=== PATIENT | female | born 1955 | race Caucasian/White ===

== ENCOUNTER 2019-12-02 11:09 | Outpatient (REF) | payer OTHER, SELFPAY ==
--- NOTE | 2019-12-02 11:17 | MM_ITS ---
EXAMINATION: MM SCREENING DIGITAL BREAST TOMOSYNTHESIS, BILATERAL CLINICAL INFORMATION: Screening. Asymptomatic. The lifetime risk of breast cancer based on the Tyrer-Cuzick Model is 7%. COMPARISON: Mammography: 11/26/2018, 11/20/2017, 11/13/2016 TECHNIQUE: Digital breast tomosynthesis is performed in both the craniocaudal and mediolateral oblique views along with computer-aided detection (CAD). Synthesized 2D images are generated from the tomosynthesis. FINDINGS: There are scattered areas of fibroglandular density (ACR BI-RADS breast composition Category b). There are no significant masses, abnormal calcifications, or other abnormalities. No developing density. The axilla and skin contours are unremarkable. No significant changes. IMPRESSION: No mammographic evidence of malignancy. ASSESSMENT: BI-RADS 1: Negative RECOMMENDATION: Routine annual mammography screening. This patient's information was entered into a reminder system with a target due date for their next mammogram.
== END 2019-12-02 11:10 | disposition home or self-care (01) ==
LOC: HO.MAMMO 11:09
PROVIDERS: PCP Family Medicine; Visit Provider Obstetrics & Gynecology Gynecology
DX: Z12.31 Encounter for screening mammogram for malignant neoplasm of breast (principal)
CPT/HCPCS: 77063; 77067; 78014

== ENCOUNTER 2020-12-06 11:51 | Outpatient (REF) | payer OTHER, SELFPAY ==
--- NOTE | ~2020-12-06 | MM_ITS ---
EXAMINATION: MM SCREENING DIGITAL BREAST TOMOSYNTHESIS, BILATERAL CLINICAL INFORMATION: Screening. Asymptomatic. The lifetime risk of breast cancer based on the Tyrer-Cuzick Model is 6%. COMPARISON: Mammography: 10/20/2019, 11/26/2018; outside mammography 11/20/2017, 11/13/2016, 11/12/2015 ([facility]). TECHNIQUE: Digital breast tomosynthesis is performed in both the craniocaudal and mediolateral oblique views along with computer-aided detection (CAD). Synthesized 2D images are generated from the tomosynthesis. FINDINGS: There are scattered areas of fibroglandular density (ACR BI-RADS breast composition Category b). There are no significant masses, abnormal calcifications, or other abnormalities. The axilla and skin contours are unremarkable. A small circumscribed nodule under mid central outer left breast is progressively decreased in size since outside mammography 2015 and slightly decreased from prior exam 2019 suggesting resolving cyst. MM/MM tomosynthesis screening BI IMPRESSION: No mammographic evidence of malignancy. ASSESSMENT: BI-RADS 2: Benign RECOMMENDATION: Routine annual mammography screening. This patient's information was entered into a reminder system with a target due date for their next mammogram.
--- NOTE | ~2020-12-06 | MM_ITS ---
EXAMINATION: BONE DENSITOMETRY CLINICAL INDICATION: Encounter for screening for osteoporosis. COMPARISON: Baseline BD dated 11/26/2018. TECHNIQUE: Using a [employer] DXA System (software version: 13.1) manufactured by [employer], dual-energy x-ray absorptiometry was performed of the lumbar spine and left hip. The images are of good technical quality. Summary results are attached. FINDINGS: AP SPINE L1-L4: Current: BMD 0.976 g/cm2, Z-score -0.2, T-score -1.7, osteopenia, 3.0% increase from baseline (<5% change is not significant). Baseline: BMD 0.948 g/cm2. LEFT FEMUR, NECK: Current: BMD 0.678 g/cm2, Z-score -1.1, T-score -2.6, osteoporosis. Baseline: BMD 0.679 g/cm2. LEFT FEMUR, TOTAL: Current: BMD 0.706 g/cm2, Z-score -1.2, T-score -2.4, osteopenia, 3.2% decrease from baseline (<5% change is not significant). Baseline: BMD 0.729 g/cm2. IDENTIFIED RISK FACTORS: Menopause, family history (parental hip fracture). HISTORY OF FRACTURE: None listed. MEDICATIONS: Calcium supplements or multivitamin, vitamin D, bisphosphonates. MM/XR DEXA axial skeleton IMPRESSION: 1. DIAGNOSIS: Osteoporosis based on the lowest T-score value of -2.6 in the femoral neck applying World Health Organization criteria. 2. 10-YEAR FRACTURE RISK PREDICTION, FRAX: Major osteoporotic fracture (clinical spine, forearm, hip or shoulder) 24.6%. Hip fracture 4.4%. 3. Treatment Recommendations: NOF guidelines recommend consideration for treatment in postmenopausal women and men age 50 and older presenting with the following: -A hip or vertebral (clinical or morphometric) fracture. -T-score less than or equal to -2.5 at the femoral neck or spine after appropriate evaluation to exclude secondary causes. -Low bone mass at the hip or spine and a 10-year fracture probability by FRAX of greater than or equal to 3% for hip fracture or greater than or equal to 20% for major osteoporotic fracture based on the [place] adapted WHO algorithm. 4. Other Recommendations: All treatment decisions require clinical judgment and consideration of individual patient factors, including patient preferences, comorbidities, previous drug use, risk factors not captured in the FRAX model (e.g. frailty, falls, vitamin D deficiency, increased bone turnover, interval significant decline in bone density) and possible under or overestimation of fracture risk by FRAX. Additional medical evaluation for secondary cause of low bone mineral density may be appropriate. FUTURE SCAN RECOMMENDATION: People with diagnosed cases of osteoporosis or at high risk for fracture should have regular bone mineral density tests. For patients eligible for Medicare, routine testing is allowed once every 2 years. The testing frequency can be increased to one year for patients who have rapidly progressing disease, those who are receiving or discontinuing medical therapy to restore bone mass, or have additional risk factors.
== END 2020-12-06 11:52 | disposition home or self-care (01) ==
LOC: HO.MAMMO 11:51
PROVIDERS: Visit Provider Obstetrics & Gynecology Gynecology
DX: Z12.31 Encounter for screening mammogram for malignant neoplasm of breast (principal); M81.0 Age-related osteoporosis without current pathological fracture; Z78.0 Asymptomatic menopausal state
CPT/HCPCS: 77063; 77067; 77080

== ENCOUNTER 2021-12-11 11:02 | Outpatient (REF) | payer OTHER, SELFPAY ==
--- NOTE | ~2021-12-11 | MM_ITS ---
EXAMINATION: MM SCREENING DIGITAL BREAST TOMOSYNTHESIS, BILATERAL CLINICAL INFORMATION: Screening. Asymptomatic. The lifetime risk of breast cancer based on the Tyrer-Cuzick Model is 6%. COMPARISON: Mammography: 12/06/2020, 12/02/2019, 11/26/2018, 11/20/2017 TECHNIQUE: Digital breast tomosynthesis is performed in both the craniocaudal and mediolateral oblique views along with computer-aided detection (CAD). Synthesized 2D images are generated from the tomosynthesis. FINDINGS: There are scattered areas of fibroglandular density (ACR BI-RADS breast composition Category b). Breast tissue composition borders on heterogeneously dense. There are scattered minor stable asymmetries. No developing density or interval mass or architectural abnormality. No abnormal calcifications. Parenchymal pattern is similar to prior studies. The axilla and skin contours are unremarkable. MM/MM tomosynthesis screening BI IMPRESSION: No significant changes from prior studies. ASSESSMENT: BI-RADS 2: Benign RECOMMENDATION: Routine annual mammography screening. This patient's information was entered into a reminder system with a target due date for their next mammogram.
== END 2021-12-11 11:03 | disposition home or self-care (01) ==
LOC: HO.MAMMO 11:02
PROVIDERS: Absent Provider Obstetrics & Gynecology Gynecology; PCP Family Medicine; Visit Provider Family Medicine
DX: Z12.31 Encounter for screening mammogram for malignant neoplasm of breast (principal)
CPT/HCPCS: 77063; 77067

== ENCOUNTER 2022-12-17 10:15 | Outpatient (REF) | payer OTHER, SELFPAY ==
--- NOTE | ~2022-12-17 | MM_ITS ---
EXAMINATION: BONE DENSITOMETRY CLINICAL INDICATION: Age-related osteoporosis without current pathological fracture. COMPARISON: Previous BD dated 12/06/2020 and baseline BD dated 11/26/2018. TECHNIQUE: Using a [employer] DXA System (software version: 13.1) manufactured by [employer], dual-energy x-ray absorptiometry was performed of the lumbar spine and left hip. The images are of good technical quality. Summary results are attached. FINDINGS: AP SPINE L1-L4: Current: BMD 0.935 g/cm2, Z-score -0.6, T-score -2.0, osteopenia, 4.2% decrease from previous, 1.4% decrease from baseline (<5% change is not significant). Prior: BMD 0.976 g/cm2. Baseline: BMD 0.948 g/cm2. LEFT FEMUR, NECK: Current: BMD 0.717 g/cm2, Z-score -0.8, T-score -2.3, osteopenia. Prior: BMD 0.678 g/cm2. Baseline: BMD 0.679 g/cm2. LEFT FEMUR, TOTAL: Current: BMD 0.732 g/cm2, Z-score -0.9, T-score -2.2, osteopenia, 3.7% increase from previous, 0.4% increase from baseline (<5% change is not significant). Prior: BMD 0.706 g/cm2. Baseline: BMD 0.729 g/cm2. IDENTIFIED RISK FACTORS: Osteoporosis. Parental hip fracture. Secondary osteoporosis (hyperthyroidism). Menopause. HISTORY OF FRACTURE: None listed. MEDICATIONS: Calcium supplement and/or multivitamin. Vitamin D. Bisphosphonates. MM/XR DEXA axial skeleton IMPRESSION: 1. DIAGNOSIS: Osteopenia based on the lowest T-score value of -2.3 in the femoral neck applying World Health Organization criteria. 2. 10-YEAR FRACTURE RISK PREDICTION, FRAX: Not performed in this patient on estrogen or bone building treatments. 3. Treatment Recommendations: NOF guidelines recommend consideration for treatment in postmenopausal women and men age 50 and older presenting with the following: -A hip or vertebral (clinical or morphometric) fracture. -T-score less than or equal to -2.5 at the femoral neck or spine after appropriate evaluation to exclude secondary causes. -Low bone mass at the hip or spine and a 10-year fracture probability by FRAX of greater than or equal to 3% for hip fracture or greater than or equal to 20% for major osteoporotic fracture based on the [place] adapted WHO algorithm. 4. Other Recommendations: All treatment decisions require clinical judgment and consideration of individual patient factors, including patient preferences, comorbidities, previous drug use, risk factors not captured in the FRAX model (e.g. frailty, falls, vitamin D deficiency, increased bone turnover, interval significant decline in bone density) and possible under or overestimation of fracture risk by FRAX. Additional medical evaluation for secondary cause of low bone mineral density may be appropriate. FUTURE SCAN RECOMMENDATION: People with diagnosed cases of osteoporosis or at high risk for fracture should have regular bone mineral density tests. For patients eligible for Medicare, routine testing is allowed once every 2 years. The testing frequency can be increased to one year for patients who have rapidly progressing disease, those who are receiving or discontinuing medical therapy to restore bone mass, or have additional risk factors.
== END 2022-12-17 10:16 | disposition home or self-care (01) ==
LOC: HO.MAMMO 10:15
PROVIDERS: PCP Nurse Practitioner Primary Care; Referring Provider Internal Medicine Cardiovascular Disease; Visit Provider Obstetrics & Gynecology Gynecology
DX: Z12.31 Encounter for screening mammogram for malignant neoplasm of breast (principal); Z13.820 Encounter for screening for osteoporosis; Z78.0 Asymptomatic menopausal state; M81.0 Age-related osteoporosis without current pathological fracture
CPT/HCPCS: 77063; 77067; 77080

== ENCOUNTER → 2022-12-17 10:30 | Outpatient (BNV) | payer OTHER, SELFPAY | PROVIDERS: PCP Nurse Practitioner Primary Care; Referring Provider Internal Medicine Cardiovascular Disease; Visit Provider Radiology Diagnostic Radiology | DX: Z12.31 Encounter for screening mammogram for malignant neoplasm of breast (principal) | CPT/HCPCS: 77063; 77067 ==

== ENCOUNTER 2023-12-22 13:49 | Outpatient (REF) | payer OTHER, SELFPAY ==
--- NOTE | ~2023-12-22 | MM_ITS ---
EXAMINATION: MM SCREENING DIGITAL BREAST TOMOSYNTHESIS, BILATERAL CLINICAL INFORMATION: Screening. Asymptomatic. COMPARISON: Mammography: Comparison is made with available priors TECHNIQUE: Digital breast mammography with tomosynthesis is performed in both the craniocaudal and mediolateral oblique views along with computer-aided detection (CAD). FINDINGS: The breasts are heterogeneously dense, which may obscure small masses (ACR BI-RADS breast composition Category c). There are no significant masses, abnormal calcifications, or other abnormalities. MM/MM tomosynthesis screening BI IMPRESSION: No mammographic evidence of malignancy. ASSESSMENT: BI-RADS BI-RADS 1 - Negative RECOMMENDATION: Routine annual mammography screening. 1 year F/U This examination should not preclude the clinical evaluation of a suspicious palpable abnormality. This patient's information was entered into a reminder system with a target due date for their next mammogram. Electronically signed by: Zohreh Houser DO 01/04/2024 03:46 PM [facility]ME
== END 2023-12-22 13:50 | disposition home or self-care (01) ==
LOC: HO.MAMMO 13:49
PROVIDERS: PCP Family Medicine; Visit Provider Obstetrics & Gynecology Gynecology
DX: Z12.31 Encounter for screening mammogram for malignant neoplasm of breast (principal)
CPT/HCPCS: 77063; 77067

== ENCOUNTER → 2023-12-22 14:00 | Outpatient (BNV) | payer OTHER, SELFPAY | PROVIDERS: PCP Family Medicine; Visit Provider Internal Medicine | DX: Z12.31 Encounter for screening mammogram for malignant neoplasm of breast (principal) | CPT/HCPCS: 77063; 77067 ==

== ENCOUNTER 2024-12-22 13:50 | Outpatient (REF) | payer OTHER, SELFPAY ==
--- OUTSIDE RECORDS SUMMARY | 2023-11-23 06:40 | XMS_ITS ---
Author Organization [facility] Address [address] [place] [address] Care Team Providers Care Electric Truck Operator Name Role Phone LEON HENDRICKSON Primary Care Provider Mildred Alexandra Unavailable [phone] REASON FOR VISIT Annual FINISHER SCREWDOWN Physical Encounters Encounter Location Date Provider Diagnosis [facility] [address] [place] [address] 11/23/2023 Mildred Whelan Plan Of Treatment Next Appt Details Provider Name:Mildred meza, 12/18/2025 02:40:00 PM, [address] [place] [address], [address], [place], [address], Progress Notes * PENNY MCCLAINB:1955 (69 yo F)Acc No.[id number]:11/23/2023 PROGRESS NOTES Patient: RINKU MCKEON Appointment Provider: Jamey Whelan M.D. :1955 A ge:68 Y S ex:Female Date:11/23/2023 Address:[address] [place], [place] [id number] Pcp:LEON HENDRICKSON Subjective: * Chief Complaints: * 1 . Annual FINISHER SCREWDOWN Physical. * Medical History: Objective: * Vitals: Assessment: Plan: * Treatment: * Images: Billing Information: * Visit Code: * Procedure Codes: * Electronic signature of Maday Whelan MD on 12/22/2024 at 05:44 PM EDT Sign off status: Pending * Appointment Provider: Jamey Whelan M.D. Date: 0 11/23/2023 Generated for Mirela ellison/Juliette/Tee on: 1 05:44 PM EDT
--- NOTE | ~2024-12-22 | MM_ITS ---
EXAMINATION: MM SCREENING DIGITAL BREAST TOMOSYNTHESIS, BILATERAL CLINICAL INFORMATION: Screening. Asymptomatic. COMPARISON: Mammography: Comparison is made with available priors TECHNIQUE: Digital breast mammography with tomosynthesis is performed in both the craniocaudal and mediolateral oblique views along with computer-aided detection (CAD). FINDINGS: The breasts are heterogeneously dense, which may obscure small masses. There are no significant masses, abnormal calcifications, or other abnormalities. MM/MM tomosynthesis screening BI IMPRESSION: No mammographic evidence of malignancy. ASSESSMENT: BI-RADS Category 1: Negative RECOMMENDATION: Routine annual mammography screening. 1 year F/U This examination should not preclude the clinical evaluation of a suspicious palpable abnormality. This patient's information was entered into a reminder system with a target due date for their next mammogram. Electronically signed by: Zohreh Houser DO 12/26/2024 09:46 AM EDT
--- NOTE | ~2024-12-22 | MM_ITS ---
EXAMINATION: DXA BONE DENSITY AXIAL HISTORY: M81.0 AGE RELATED OSTEOPOROSIS TECHNIQUE: [employer] Dual energy absorptiometry (DEXA) of the lumbar spine, total left hip, and femoral neck was performed. COMPARISON: Comparison is made with the prior examination dated 12/17/2022. FINDINGS: The bone mineral density of the lumbar spine is 1.068 g/cm2, corresponding to a T-score of -0.9, and a Z-score of 0.6. This is indicative of normal bone mineral density. This represents a BMD change of 14.2% compared to the prior exam. This is statistically significant. The bone mineral density of the left total hip is 0.724 g/cm2, corresponding to a T-score of -2.3, and a Z-score of -0.8. This is indicative of osteopenia. This represents a BMD change of -1.1% compared to the prior exam. This is not statistically significant. The bone mineral density of the left femoral neck is 0.718 g/cm2, corresponding to a T-score of -2.3, and a Z-score of -0.7. This is indicative of osteopenia. This represents a BMD change of 0.1% compared to the prior exam. MM/XR DEXA axial skeleton IMPRESSION: Based on bone mineral density, and according to World Health Organization (WHO) criteria, the diagnosis is consistent with osteopenia. Statistically, 68% of repeat scans fall within 1 SD (+/- 0.010 g/cm2 for AP spine L1-L4) and 1 SD (+/- 0.012 g/cm2 for femur total) [employer] is a trademark of the [employer] [place] [employer] Met[employer], a World Health Organization (WHO) Collaborating Center. Electronically signed by: Chidi Titus MD 12/22/2024 03:19 PM EDT
--- OUTSIDE RECORDS SUMMARY | 2024-12-22 17:45 | XMS_ITS | Encounter Summary ---
Author Organization [facility] Address [address] [place] [address] Care Team Providers Care Clinical Cytogeneticist Name Role Phone Chidi Vásquez Primary Care Provider [phone] Encounter Details Date Type Department Care Team (Late st Contact Info) Description 07/20/2024 Orders Only [facility] Nuclear Medicine [address] [place] [id number] Chidi Hawk MD [address] [place] [address] Social History Tobacco Use Types Packs/Day Years Used Date Smoking Tobacco: Never Smokeless Tobacco: Never Alcohol Use Standard Drinks/Week Comments Yes 0 (1 standard drink = 0.6 oz pur e alcohol) Comments Unknown Sex and Gender Information Value Date Recorded Sex Assigned at Female 11/30/2023 10:18 AM EDT Legal Sex Female 12:18 PM EDT Gender Identity Female 11/30/2023 10:18 AM EDT Sexual Orientation Straight 11/30/2023 10 :18 AM EDT documented as of this encounter Plan of Treatment Upcoming Encounters Date Type Department Care Team (Late st Contact Info) Description 02/15/2025 10:45 AM EST Follow-Up [facility] Neurology [address] [place] [address] [address] [place] [address] Benson Madrid MD [address] [place] [phone] documented as of this encounter Visit Diagnoses Not on filedocumented in this encounter Care Teams Clinical Cytogeneticist Relationship Specialty Start Date End Date Chidi Vásquez [address] [place] [phone] PCP - General Family Medicine 11/27/23 documented as of this encounter
--- OUTSIDE RECORDS SUMMARY | 2024-12-22 17:45 | XMS_ITS | Clinical Summary ---
Author Organization [facility] Address [address] [facility] [address] [place] [phone] Phone Care Team Providers Care Utility Tech Name Role Phone Annetta Carter MD Primary Care Provider Allergies No known active allergies Medications calcium citrate-vitamin D3 1,000 mg-400 unit/30 mL Liqd Take by mouth. Active cholecalciferol (VITAMIN D3) 25 MCG (1,000 unit) tablet Take 1,000 Units by mouth daily. Active celecoxib (CELEBREX) 200 MG capsule Take 200 mg by mouth daily. Active alendronate (FOSAMAX) 70 MG tablet TAKE 1 TABLET BY MOUTH IN THE MORNING EVERY 7 DAYS WITH A FULL GLASS OF WATER ON AN EMPTY STOMACH. DO NOT TAKE ANYTHING ELSE BY MOUTH OR LIE DOWN FOR THE NEXT 30 MINUTES 12 tablet 3 11/28/2020 Active levothyroxine (SYNTHROID, LEVOTHROID) 100 MCG tablet Take 1 tablet (100 mcg total) by mouth as directed. Take 1 tab daily for 6 days of the week, take 1/2 a tab on 1 day of the week only. 90 tablet 3 05/12/2022 Active Active Problems Problem Noted Date Diagnosed Date Postablative hypothyroidism 11/18/2017 Thyroid nodule 11/18/2017 Family History Medical History Relation Comments Thyroid disease Neg Hx Social History Tobacco Use Types Packs/Day Years Used Date Smoking Tobacco: Former Cigarettes Q uit: 11/19/1979 Smokeless Tobacco: Never Alcohol Use Standard Drinks/Week Comments Yes 0 (1 standard drink = 0.6 oz pur e alcohol) Education Answer Date Recorded Are you interested in more education? Not on arvind e 06/27/2022 Are you concerned about learning? Not on file 06/27/2022 No 06/27/2022 No 06/27/2022 Digital Access Answer Date Recorded No 07/26/2022 No 07/26/2022 No 07/26/2022 Reliable internet access at home? Not on file 07/26/2022 Device with a working camera? Not on file Comments Unknown Sex and Gender Information Value Date Recorded Sex Assigned at Not on file Legal Sex Female 3:45 PM EDT Gender Identity Not on file Sexual Orientation Not on file Last Filed Vital Signs Vital Sign Reading Time Taken Comments Blood Pressure 115/70 11/18/2017 3:23 PM EDT Pulse 80 11/18/2017 3:23 PM EDT Temperature - - Respiratory Rate - - Oxygen Saturation - - Inhaled Oxygen Concentration - - Weight 69.4 kg (153 lb) 11/18/2017 3:23 PM EDT Height 165.1 cm (5' 5 ) 11/18/2017 3:23 PM EDT Body Mass Index 25.46 11/18/2017 3:23 PM EDT Plan of Treatment Health Maintenance Due Date Last Done Comments Adult Td,Tdap Booster 1955 LIPID PANEL 1955 DEPRESSION SCREENING 1966 SMOKING Hx and SMOKELESS TOBACCO SCREENING 05/04/1967 HEPATITIS C SCREENING 1972 MAMMOGRAM 1994 COLOGUARD 05/04/1999 COLONOSCOPY 05/04/1999 COLORECTAL CANCER SCREENING 05/04/1999 FIT TEST 05/04/1999 FOBT 05/04/1999 SIGMOIDOSCOPY 05/04/1999 VIRTUAL COLONOSCOPY 05/04/1999 PNEUMOCOCCAL VACCINES (50+ years) (1 of 1 - PCV) 2004 OSTEOPOROSIS SCREENING INITI AL (ONE-TIME) 05/04/2019 TSH LEVEL 11/28/2021 11/28/2020, 11/29/2019, 11/09/2018 INFLUENZA VACCINE (#1) 2024 9, 11/10/2017, 11/06/2016 COVID-19 VACCINE (2 - 2024-2 6 season) 2024 04/26/2020 RSV VACCINE (1 - 1-dose 75+ series) 2029 ZOSTER VACCINES Completed 09/17/2018, 07/15/2018 HEPATITIS A VACCINES Aged Out No long er eligible based on patient's age to complete this topic HIB VACCINES Aged Out No longer eligi ble based on patient's age to complete this topic MENINGOCOCCAL VACCINES (ACWY) Aged Out No longer eligible based on patient's age to complete this topic MENINGOCOCCAL VACCINES (B) Aged Out N o longer eligible based on patient's age to complete this topic Medical Devices Not on file Procedures Procedure Name Priority Date/Time Associated Diagnosis Comments TSH Routine 11/28/2020 2:21 PM EDT Postablative hypothyroidism from Last 3 Months or Most Recently Relevant to Health Maintenance Results * TSH (11/28/2020 2:21 PM EDT) TSH 1.05 0.40 - 5.00 uIU/mL [facility] 11/28/2020 2:21 PM EDT 11/28/2020 7:03 PM EDT Hellen Dias MD LAB BLOOD ORDERABLES Final Result [address] [id number] from Last 3 Months or Most Recently Relevant to Health Maintenance Insurance [facility] TOTAL CHOICE INDEMNITY [facility] T[facility]ICE INDEMNITY [facility] TOTAL CHOICE INDEMNITY [facility] TOTAL CHOICE [facility]DEMN[facility] TOTAL CHOICE [facility]MNITY [facility]OTAL CHOICE [facility]MNITY [facility] TOTAL CHOICE INDEMNITY [facility] TOTAL CHOICE INDEMNITY [facility] TOTAL CHOICE INDEMNITY Care Teams Utility Tech Relationship Specialty Start Date End Date Annetta Carter MD [address] [place] [id number] PCP - General Family Medicine 09/16/17 Additional Source Comments The information contained in this document represents components of the legal health record. It is not the complete legal health record.[facility]
--- OUTSIDE RECORDS SUMMARY | 2024-12-22 17:45 | XMS_ITS | Clinical Summary ---
Author Organization [facility] Address [address] [place] [address] Care Team Providers Care Supervisor Histology Name Role Phone Chidi Vásquez Primary Care Provider [phone] Allergies No known active allergies Medications levothyroxine (SYNTHROID, LEVOTHROID) 112 mcg tablet Take 112 mcg by mouth daily. Active Fosamax 70 mg tablet 4 Active ascorbic acid, vitamin C, (Vitamin C) 500 mg tablet,chewable 4 Active CALCIUM CITRATE-VITAMIN D3 ORAL Take by mouth. Activ e calcium citrate/vitamin D3 (CITRACAL + D ORAL) 4 Active cholecalciferol (VITAMIN D3) 2,000 unit tablet Vitamin D TABS 1000unit DIRECTED, Quantity: 0; Refills: 0 Started [id number] Active 9 Active cholecalciferol (VITAMIN D3) 1,000 unit tablet Take 1,000 Units by mouth daily. Active docusate sodium (COLACE) 100 mg capsule every 24 hours. 4 Active doxepin 10 mg capsule 1 CAPSULE BY MOUTH DAILY AT BEDTIME,INSTR:FO R SLEEP IF NO IMPROVEMENT CAN TAKE 2 AT A TIME Oral for 15 Days Active doxycycline hyclate 20 mg tablet 4 Active metroNIDAZOLE (METROGEL) 1 % gel SMARTSIG:Topical Daily 4 Active omega-3s/dha/ep a/fish oil/D3 (VITAMIN-D + OMEGA-3 ORAL) 4 Active triamcinolone acetonide (KENALOG) 0.1% cream SMARTSIG:Sparing ly Topical Twice Daily 02/20/202 4 Active wheat dextrin (Fiber Supplement,whea tdextrin,) 3 gram/3.8 gram powder Active Active Problems Problem Noted Date Diagnosed Date REM sleep behavior disorder 10/04/2024 Parkinson's disease without dyskinesia or fluctuating manifestations 12/02/2023 Encounters Date Type Department Care Team Description 11/25/2024 Telephone [facility] Neurology [address] [place] [address] [address] [place] [address] Yisel Mcgrath MD 10/04/2024 11:15 AM EDT Follow-Up [address] [place] [address] Benson Madrid MD Parkinson's disease without dyskinesia or fluctuating manifestations (HCC) (Primary Dx); REM sleep behavior disorder from Last 3 Months Family History Medical History Relation Name Comments Tremor Mother Relation Name Status Comments Mother Social History Tobacco Use Types Packs/Day Years Used Date Smoking Tobacco: Never Smokeless Tobacco: Never Tobacco Cessation:Counseling Given: Not Answered Alcohol Use Standard Drinks/Week Comments Yes 0 (1 standard drink = 0.6 oz pur e alcohol) Comments Unknown Sex and Gender Information Value Date Recorded Sex Assigned at Female 11/30/2023 10:18 AM EDT Legal Sex Female 12:18 PM EDT Gender Identity Female 11/30/2023 10:18 AM EDT Sexual Orientation Straight 11/30/2023 10 :18 AM EDT Last Filed Vital Signs Vital Sign Reading Time Taken Comments Blood Pressure 150/78 10/04/2024 11:05 AM EDT Pulse 83 10/04/2024 11:05 AM EDT Temperature 36.4 C (97.5 F) 10/04/2024 11:05 AM EDT Respiratory Rate - - Oxygen Saturation 100% 10/04/2024 11:05 AM EDT Inhaled Oxygen Concentration - - Weight 69.9 kg (154 lb) 10/04/2024 11:05 AM EDT Height - - Body Mass Index - - Plan of Treatment Upcoming Encounters Date Type Department Care Team (Late st Contact Info) Description 02/15/2025 10:45 AM EST Follow-Up [facility] Neurology [address] [place] [address] [address] Medical [place] [address] Benson Madrid MD [address] [place] [phone] Health Maintenance Due Date Last Done Comments Colonoscopy 1955 FOBT / Fit Test 1955 Hepatitis C Screening 1955 Sigmoidoscopy 1955 Mammogram 1994 Osteoporosis Screening 2004 Alcohol/Substance Use Screening 03/02/2024 Depression Screening and Follow-Up 03/02/2024 Health Care Proxy Review 03/02/2024 Social Drivers of Health Annual Screening 03/02/2024 COVID-19 Vaccine ( - 2024- season) 2024 05/24/2020, 04/26/2020 Influenza Vaccine (#1) 2024 7, 11/04/2015, 10/22/2014, Additional history exists Cologuard 09/15/2027 09/14/2024, 09/14/2024 Colon Cancer Screening 09/15/2027 RSV Vaccine (60+ years old and patients) (1 - 1-dose 75+ series) 2029 DTaP,Tdap,and Td Vaccines (3 - Td or Tdap) 08/13/2032 08/13/2022, 11/19/2011 Zoster Vaccines Completed 09/17/2018, 07/15/2018 Pneumococcal Vaccine: 50+ Years Completed 08/13/2022, 08/03/2020, 08/03/2019 Hepatitis B Vaccines Aged Out No long er eligible based on patient's age to complete this topic Insurance [employer] Care Teams Supervisor Histology Relationship Specialty Start Date End Date Chidi Vásquez [address] [place], [place] [address] quinones [phone] PCP - General Family Medicine 11/27/23
--- OUTSIDE RECORDS SUMMARY | 2024-12-22 17:45 | XMS_ITS | Patient Health Record ---
Author Organization [facility] Address [address] [place] [address] Care Team Providers Care Board Design Engineer Name Role Phone LEON HENDRICKSON Primary Care Provider Mildred Alexandra [phone] Allergies No Known Allergies Results Component Value Reference Range Notes Urinalysis Reviewed date:12/14/2024 03:25:57 PM Interpretation: Performing Lab: Notes/Report: PH 5.0 PROTEIN Neg GLUCOSE Neg BLOOD Neg PDF Report Reviewed date:02/07/2024 02:25:21 PM Interpretation: Performing Lab:[facility], [address] [place] [address], Phone - [phone], [facility] - [facility] Notes/Report: Clinical Information:Vaginal/Cervical, LMP: Men o [id number] Dates / Results....11/23/23 No Interp Poss Other..............Post Menopausal No. of containers..01 ThinPrep Vial [id number] [id number] No Culture 30 Plus Reviewed date:02/07/2024 02:27:15 PM Interpretation: Performing Lab:[facility], [address] [place] [address], Phone - [phone], Director - [facility] Notes/Report: Clinical Information:Vaginal/Cervical, LMP: Men o [id number] Dates / Results....11/23/23 No Interp Poss Other..............Post Menopausal No. of containers..01 ThinPrep Vial DIAGNOSIS: EPITHELIAL CELL ABNORMALITY. ATYPICAL SQUAMOUS CELLS OF UNDETERMINED SIGNIFICANCE (ASC-US). Specimen adequacy: Satisfactory for evaluation. Endocervical and/or squamous metaplastic cells (endocervical component) are present. Clinician provided ICD10: R8 7.615 Additional comment: INCREASE D SQUAMOUS MATURATION FOR PATIENT AGE Performed by: Vignesh Prakash , Foundation Maker (ASCP) Electronically signed by: Lynnette Cook MD, Pathologist . . Pathologist provided ICD10: R87.610 Note: The Pap smear is a screening test designed to aid in the detection of premalignant and malignant conditions of the uterine cervix. It is not a diagnostic procedure and should not be used as the sole means of detecting cervical cancer. Both false-positive and false-negative reports do occur. . Test Methodology: This liquid based ThinPrep(R) pap test was screened with the use of an image guided system. HPV Aptima Negative Negative This nucleic acid amplification test detects fourteen high-risk HPV types (16,18,31,33,35,39,45,51,52,56, 58,59,66,68) without differentiation. HPV Genotype Reflex Criteria not met, HPV Genotype not performed. Reason For Referral No Information Medications Medication SIG (Take, Route, Frequency, Duration) Notes Start Date End Date Status Doxepin HCl 10 MG 1 CAPSULE BY MOUTH D AILY AT BEDTIME,INSTR:FOR SLEEP IF NO IMPROVEMENT CAN TAKE 2 AT A TIME Oral; Duration: 15 Days Active Levoxyl 100 MCG 1 tablet Orally Once a day, 1 1/2 on Thursday, None of Thursday [facility] 02/13/2011 Active Stool Softener 100 MG 1 capsule as neede d Orally Once a day; Duration: 30 day(s) Active Caltrate 600 Active Doxycycline Hyclate 20 MG Oral; Duration: 90 Days Active Alendronate Sodium 35 MG 1 tablet 30 min utes before the first food, beverage or medicine of the day with plain water Orally Once a day; Duration: 90 days 11/23/2023 Active Immunizations Vaccine Route Administration Date Status Comme nts Influenza, live, intranasal Intramuscular 09/15/2011 Jorge ellison Social History Tobacco Use: Social History Observation Description Date Details (start date - stop date) Never Smoker NA - NA Sexual History Question Answer Notes Had sex in the past 12 months (vaginal, oral, or anal)? Yes with Men only Prevention strategies discussed: Other AUDIT-C (Standard) Question Answer Notes Did you have a drink contain ing alcohol in the past year? Yes How often did you have a dri nk containing alcohol in the past year? 2 to 4 times a month (2 points) How many drinks did you have on a typical day when you were drinking in the past year? 1 or 2 drinks (0 point) How often did you have six o r more drinks on one occasion in the past year? Never (0 point) Points 2 Interpretation Negative Tobacco Control (Standard) Question Answer Notes Tobacco use: Nonsmoker Section Notes: Marital status: Children: none Occupation: retired Nutrition: good diet .CE: Smoking: none .CE: Alcohol: socially drinks alcohol Illicit drugs: no Seatbelt: yes Problems Problem Type SNOMED Code ICD Code Onset Dates Problem Status W/U Status Risk Notes Problem Vitamin D deficiency (02191059) Vitamin D deficiency, unspecified (E55.9) Active confirmed Problem Postmenopausal atrophic vaginitis (12454558) Postmenopausal atrophic vaginitis (N95.2) Active confirmed Problem Age-related osteoporosis (505400532) Age-related osteoporosis without current pathological fracture (M81.0) Active confirmed Problem Parkinson's disease (disorder) (25744388) Parkinson's disease without dyskinesia, without mention of fluctuations (G20.A1) Active confirmed Problem Hypothyroidism (41323319) Unspecified hypothyroidism (244.9) Active confirmed Major Problem Menopausal symptom (11435254) Symptomatic menopausal or female climacteric states (627.2) Active confirmed Major Problem Postmenopausal atrophic vaginitis (93736646) Postmenopausal atrophic vaginitis (627.3) Active confirmed Diag Problem General examination of patient (453055213) Routine general medical examination at health care facility (V70.0) Active confirmed Diag Problem Gynecological examination normal (467524054760223) Routine gynecological examination (V72.31) Active confirmed Major Problem Exercises teaching, guidance, and counseling (212953842) Exercise counseling (V65.41) Active confirmed Diag Problem Screening for malignant neoplasm of colon (166566459) Special screening for malignant neoplasms, colon (V76.51) Active confirmed Major Vital Signs Temperature 97.4 degrees Fahrenheit 12/14/2024 Blood pressure diastolic 78 mm Hg 12/14/2024 Height 65.5 in 12/14/2024 Blood pressure systolic 106 mm Hg 12/14/2024 Weight 151 lbs 12/14/2024 BMI 24.74 kg/m2 12/14/2024 Encounters Encounter Location Date Provider Diagnosis [facility] [address] [place] [address] 01/11/2024 Mildred Whelan [facility] [address] [place] [address] 02/08/2024 Mildred Whelan [facility] [address] [place] [address] 01/25/2024 Mildred Whelan Unsatisfactory cytologic smear of cervix R87.615 [facility] [address] [address] 12/14/2024 Mildred Whelan Encounter for gynecological examination (general) (routine) without abnormal findings Z01.419 ; Encounter for screening mammogram for malignant neoplasm of breast Z12.31 ; Age-related osteoporosis without current pathological fracture M81.0 and Dense breasts, unspecified R92.30 Assessments Encounter Date Diagnosis (ICD Code) Assessment Notes Treatment Notes Treatment Clinical Notes Section Notes 01/25/2024 Unsatisfactory cytologic smear of cervix (ICD-10 - R87.615) PAP TEST WITH HPV TYPING WAS TAKEN. PREMAIRN CREAM REMNANTS WERE NOTED AND AM HOPING THIS PAP IS NOT UNINTERPRETABLE AGAIN DUE TO THE CREAM. DISCUSSED THIS WITH PAT. IF IT IS UNINTERPRETABLE, WILL JUST REPEAT PAP NEXT YEAR. 12/14/2024 Encounter for gynecological examination (general) (routine) without abnormal findings (ICD-10 - Z01.419) NO MORE PAP TESTS. 12/14/2024 Encounter for screening mammogram for malignant neoplasm of breast (ICD-10 - Z12.31) REGULAR MAMMOGRAMS AND SBE'S WERE RECOMMENDED. 12/14/2024 Age-related osteoporosis without current pathological fracture (ICD-10 - M81.0) DISCUSSED OSTEOPOROSIS AND ITS IMPACT ON HER HEALTH. ADEQUATE CALCIUM AND VIT D. WEIGHT BEARING EXERCISES. OSTEO PRECAUTIONS. REPEAT BMD THIS YEAR. CONTINUE FOSAMAX. HER PARKINSON'S MD WILL BE PRESCRIBING THE MEDICATION. 12/14/2024 Dense breasts, unspecified (ICD-10 - R92.30) DISCUSSED DENSE BREASTS ON MAMMOGRAM AND ITS IMPLICATIONS. 3D MAMMOGRAMS WERE RECOMMENDED. Plan Of Treatment Pending Test Test Name Order Date MAMMOGRAM, SCREENING 03/01/2015 MAMMOGRAM, SCREENING 11/17/2022 MAMMOGRAM, SCREENING 11/23/2023 MAMMOGRAM, SCREENING 12/14/2024 MAMMOGRAM, SCREENING 10/31/2020 MAMMOGRAM, SCREENING 09/09/2019 Urinalysis 11/23/2023 BONE DENSITY 11/17/2022 BONE DENSITY 12/14/2024 BONE DENSITY 10/31/2020 BONE DENSITY 09/17/2022 MM Digital Mammo Screening 10/31/2020 MM Digital Mammo Screening 09/09/2019 MM Digital Mammo Screening 12/14/2024 MM Digital Mammo Screening 11/23/2023 MM Digital Mammo Screening 11/11/2021 MM Digital Mammo Screening 11/17/2022 Next Appt Details Provider Name:Mildred meza, 12/18/2025 02:40:00 PM, [address], [place], [address], Insurance Providers Payer Name Payer Address Payer Phone Subscriber Number Group Number Insured Name Patient Relationship to Insured Coverage Start Date Coverage End Date [facility] [address] [place] [id number] [facility] RINKU MCCLAIN Self - patient is the insured Medical (General) History Medical History History ICD Code Postmenopausal atrophic vaginitis N95.2 Other specified counseling Z71.89 Hypothyroidism, unspecified E03.9 Menopausal and female climacteric states N95.1 Inconclusive mammogram R92.2 Disorder of bone density and structure, unspecified M85.9 Shingles 12/2017 Thyroid Growth Vitamin D deficiency, unspecified E55.9 Age-related osteoporosis without current pathological fracture M81.0 Mammographic heterogeneous density, bila teral breasts R92.333 Parkinson's disease without dyskinesia, without mention of fluctuations G20.A1 Dense breasts, unspecified R92.30 Atypical squamous cells of u ndetermined significance on cytologic smear of cervix (ASC-US) R87.610 Surgical History Surgery Date(Month/Year) Radioactive Iodine Treatment - Graves Di sease Colonoscopy Cataracts Right Eye Hospitalization History Reason Date(Month/Year) See Surgical Hx
== END 2024-12-22 13:51 | disposition home or self-care (01) ==
LOC: HO.MAMMO 13:50
PROVIDERS: Absent Provider Obstetrics & Gynecology Gynecology; PCP Registered Nurse; Visit Provider Family Medicine
DX: Z12.31 Encounter for screening mammogram for malignant neoplasm of breast (principal); M81.0 Age-related osteoporosis without current pathological fracture
CPT/HCPCS: 77063; 77067; 77080

== ENCOUNTER → 2024-12-22 14:30 | Outpatient (BNV) | payer OTHER, SELFPAY | PROVIDERS: Absent Provider Obstetrics & Gynecology Gynecology; PCP Registered Nurse; Visit Provider Radiology Diagnostic Radiology | DX: E28.39 Other primary ovarian failure (principal) | CPT/HCPCS: 77080 ==